=== PATIENT | male | born 1945 | race Caucasian/White ===

== ENCOUNTER → 2018-06-05 | Outpatient (CLI) | payer OTHER | LOC: MERGE 16:44 → BRMIMAGING 16:44 | PROVIDERS: ATTEND Preventive Medicine Occupational Medicine | DX: S90.112A Contusion of left great toe without damage to nail, initial encounter (principal); W20.8XXA Other cause of strike by thrown, projected or falling object, initial encounter | CPT/HCPCS: 73660-PO ==

== ENCOUNTER → 2018-06-15 | Outpatient (CLI) | payer OTHER | LOC: BRMIMAGING 09:51 | DX: M84.872 Other disorders of continuity of bone, left ankle and foot (principal) | CPT/HCPCS: 73630-PO ==

== ENCOUNTER → 2018-07-03 | Outpatient (CLI) | payer OTHER | LOC: BRMIMAGING 09:13 | DX: M84.872 Other disorders of continuity of bone, left ankle and foot (principal) | CPT/HCPCS: 73630-PO ==